=== PATIENT | female | born 1990 | race Asian ===

== ENCOUNTER 2017-06-07 07:04 | Inpatient (IN) | payer BC ==
[2017-06-07] MEDS ORDERED: Sodium Chloride 0.9% 10 ML Syringe FLUSH PRN (08:28)
[2017-06-07] MEDS ORDERED: Lidocaine 1% 50 ML MDV INJECT ONE (08:28)
[2017-06-07] MEDS ORDERED: Oxytocin/Lactated Ringers 10 UNIT/1,000 ML BAG IV SCH ×2 (08:30→11:15)
--- NOTE | 2017-06-07 08:47 | PCM.LDHP ---
<Ray Muñoz - Last Filed: 06/07/17 09:54> L&D History of Present Illness - General Date of Service: 06/07/17 Admit Problem/Dx: Admission Diagnosis/Problem Admission Diagnosis/Problem Source of Information: Patient, Other History Limitations: Reports: No Limitations - History of Present Illness Introduction:: History of present illness: Patient is a 26-year-old 2 para 1001 female admitted for induction of labor. Her last menstrual period was unknown since she did not experience menses since her last . Her initial ultrasound on 11/17/16 placed her at 11-1/7 weeks with a second ultrasound on at 21-1 weeks supporting an NARAYAN is 06/07/2017. Her previous resulted in a normal spontaneous vaginal delivery at 38-6 weeks on 03/28/16 of a 7 lbs 12 oz female named Irma Wilson after 9 hours of labor. She did have hypertension at the end of her previous . course was relatively unremarkable. She plans to breastfeed. She declined genetic testing. Patient declined influenza and TDAP vaccines. Her group B strep screen was positive. course: First visit occurred on 11/17/16 at 11-1/7 weeks. Has had an unremarkable course with normal fundal height growth. Pre- weight was 138 lbs, and current weight is 159 lbs, a gain of 21 lbs. Blood pressure measurements have remained borderline. Laboratory testing in consisted of a blood type which was B+ with a negative antibody screen. Initial labs showed a hemoglobin of 13.1 and platelets of 285,000. She is rubella immune. RPR is nonreactive. Hepatitis B surface antigen and HIV assays were both negative. Third trimester labs showed a HGB of 9.3 Platelet count was 231,000 and GTT was abnormal at 144. Hemoglobin A1C performed later was at 5.20. A recheck CBC at 26 weeks showed a HGB of 11.6 and platelets of 152,000. Her group B strep screen in the third trimester is positive. Allergies: 1. Animal dander-cats 2. Bemzk-mrzobyj-aaesd Medications: 1. vitamins 1 tablet daily 2. Ferrous sulfate 325 mg twice a day Past medical history: 1. Allergies-takes Claritin 2. Gallstones Past surgical history: 1. Tonsillectomy in childhood 2. Needles teeth removal 2011 Family History: Mother alive with HTN. Father alive. One brother and three sisters alive and well. MGM and MGF health status unknown as patient's mother is adopted. PGM alive and well; PGF from a plane crash. Social history: Patient is . is Corona Steinberg. Lives in [place], [place]. She has some college. No tobacco, alcohol, or illicit drug usage. Review of systems: Patient has no concerns. Normal changes reported. Skin: no rashes or lesions Respiratory: no shortness of breath Cardiovasular: denies chest pain Breasts: no masses noted GI: normal bowel activity : no dysuria Musculoskeletal: denies muscle pain or tenderness Neurologic: normal Physical exam: Well-developed, well-nourished, and in no acute distress Skin: warm and dry with no lesions or rashes noted HEENT: no lymphadenopathy, no thyromegaly Cardiovascular: regular rate and rhythm, normal S1 and S2, no murmurs Respiratory: clear breath sounds in all lung hernandez Breast: deferred Abdomen: protuberant with , baby in vertex position. Cervical exam: 3+, 80% effaced, mid-position Extremities: no distal edema noted - Related Data Allergies/Adverse Reactions: Allergies Allergy/AdvReac Type Severity Reaction Status Date / Time breezy Allergy Hives Verified 03/28/16 11:51 Home Medications: Home Meds Ferrous Sulfate [Iron] 325 mg PO DAILY 03/28/16 [History] Pnv No.122/Iron/Folic Acid [ Multi Tablet] 1 each PO DAILY 03/28/16 [ History] Past Medical History - Past Health History Medical/Surgical History: Denies Medical/Surgical History [facility] History: Reports: - Past Surgical History HEENT Surgical History: Reports: Adenoidectomy, Oral Surgery, Tonsillectomy Social & Family History - Tobacco Use Smoking Status *Q: Never Smoker Second Hand Smoke Exposure: No - Recreational Drug Use Recreational Drug Use: No H&P Review of Systems - Review of Systems: Review Of Systems: See Below L&D Exam - Exam Exam: See Below - Vital Signs Vital Signs: Last Vital Signs Temp 98.2 F 06/07/17 08:19 Pulse 95 06/07/17 08:19 Resp 15 06/07/17 08:19 BP 121/73 06/07/17 08:19 Pulse Ox 100 08/30/17 08:19 Weight: 72.393 kg Problem List Initiated/Reviewed/Updated: Yes Assessment/Plan Comment:: Assessment: 1. 26-year-old at at 40-0 weeks gestational age by ultrasound admitted for induction of labor. 2. Patient is group B strep positive. Plan: 1. Artificial rupture of membranes performed. 2. Expectant management-will monitor contractions and will augment with oxytocin based on frequency and strength. 3. Ampicillin for group B strep. 4. Patient plans to breastfeed. <Kuldeep Momin - Last Filed: 06/08/17 09:00> L&D History of Present Illness - General Admit Problem/Dx: Admission Diagnosis/Problem Admission Diagnosis/Problem L&D Exam - Vital Signs Vital Signs: Last Vital Signs Temp 36.4 C 06/08/17 03:27 Pulse 58 L 06/08/17 03:27 Resp 14 06/08/17 03:27 BP 114/82 06/08/17 03:27 Pulse Ox 97 06/08/17 03:27 - Patient Data Lab Results Last 24 hrs: Laboratory Results - last 24 hr 06/07/17 06/08/17 Range/Units 08:45 05:45 WBC 10.14 H 14.96 H (3.98-10.04) K/mm3 RBC 4.00 3.68 L (3.98-5.22) M/mm3 Hgb 12.1 11.2 (11.2-15.7) gm/L Hct 34.5 32.0 L (34.1-44.9) % MCV 86.3 87.0 (79.4-94.8) fl MCH 30.3 30.4 (25.6-32.2) pg MCHC 35.1 35.0 (32.2-35.5) g/dl RDW Std Deviation 51.3 H 50.7 H (36.4-46.3) fL Plt Count 149 L 127 L (182-369) K/mm3 MPV 10.4 10.1 (9.4-12.3) fl Result Diagrams: 06/08/17 05:45 Orders Last 24hrs: Active Orders 24 hr Category Date Time Status Activity as Tolerated [RC] PER UNIT ROUTINE Care 06/07/17 18:53 Active Notify Provider [RC] ASDIRECTED Care 06/07/17 13:51 Inactive Oxygen Therapy [RC] ASDIRECTED Care 06/07/17 13:51 Inactive Pulse Oximetry [RC] ASDIRECTED Care 06/07/17 13:51 Inactive Vital Signs [RC] 04,12,20 Care 06/07/17 18:53 Active Vital Signs [RC] PER UNIT ROUTINE Care 06/07/17 08:28 Inactive Regular Diet [DIET] Diet 06/07/17 Dinner Active Acetaminophen [Tylenol] Med 06/07/17 18:53 Active 650 mg PO Q4H PRN Benzocaine/Menthol [Dermoplast Pain Relief [place]] Med 06/07/17 18:53 Active See Dose Instructions TOP ASDIRECTED PRN Docusate Sodium [Colace] Med 06/07/17 18:53 Active 100 mg PO BID PRN Ibuprofen [Motrin] Med 06/07/17 18:53 Active 600 mg PO Q4H PRN Lanolin [Lansinoh HPA] Med 06/07/17 18:53 Active See Dose Instructions TOP ASDIRECTED PRN Witch Rosa [Tucks] Med 06/07/17 18:53 Active 1 pad TOP ASDIRECTED PRN Assess Lochia [WOMSER] Per Unit Routine Oth 06/07/17 18:53 Ordered Assess Uterine Involution [WOMSER] Per Unit Routine Oth 06/07/17 18:53 Ordered Breast Pump [WOMSER] Per Unit Routine Oth 06/07/17 18:53 Ordered Heat Therapy [OM.PC] PRN Oth 06/07/17 18:53 Ordered Heat Therapy [OM.PC] PRN Oth 06/08/17 18:53 Ordered Ice Therapy [OM.PC] Per Unit Routine Oth 06/07/17 18:53 Ordered Medication Administration Instruction [OM.PC] Routine Oth 06/07/17 18:53 Ordered Perineal Care [OM.PC] Per Unit Routine Oth 06/07/17 18:53 Ordered Sitz Bath [OM.PC] Per Unit Routine Oth 06/07/17 18:53 Ordered Resuscitation Status Routine Resus Stat 06/07/17 08:28 Ordered Medication Orders Acetaminophen (Tylenol) 650 mg PO Q4H PRN PRN Reason: mild pain or fever Benzocaine/Menthol (Dermoplast Pain Relief [place]) 0 gm TOP ASDIRECTED PRN PRN Reason: Perineal Comfort Measure Last Admin: 06/07/17 21:08 Dose: 1 canister Docusate Sodium (Colace) 100 mg PO BID PRN PRN Reason: Constipation Last Admin: 06/07/17 21:08 Dose: 100 mg Emollient Ointment (Lansinoh Hpa) 0 gm TOP ASDIRECTED PRN PRN Reason: Sore Nipples Ibuprofen (Motrin) 600 mg PO Q4H PRN PRN Reason: Mild pain or fever Last Admin: 06/08/17 07:31 Dose: 600 mg Admin: 06/08/17 03:31 Dose: 600 mg Admin: 06/07/17 21:07 Dose: 600 mg Witch Rosa (Tucks) 1 pad TOP ASDIRECTED PRN PRN Reason: Hemorrhoid pain Last Admin: 06/07/17 21:08 Dose: 1 jar
[2017-06-07] MEDS ORDERED: Ampicillin 2 GM in Sodium Chloride 0.9% 100 ML IV ONE (09:00)
[2017-06-07] MEDS: Lactated Ringers 1,000 ML IV SCH ×2 (09:12→14:24)
[2017-06-07] MEDS: Ampicillin 1 GM in Sodium Chloride 0.9% 100 ML IV SCH ×2 (13:37→17:27)
[2017-06-07] MEDS ORDERED: fentaNYL 100 MCG/2 ML SDV EPIDUR PRN (13:52)
[2017-06-07] MEDS ORDERED: Ondansetron 4 MG/2 ML SDV IVPUSH PRN (13:52)
[2017-06-07] MEDS ORDERED: ePHEDrine 50 MG/ML SDV IVPUSH PRN (13:52)
--- NOTE | 2017-06-07 13:54 | PCM.PREANE ---
Preanesthetic Assessment - Anesthesia/Transfusion/Family Hx Anesthesia History: Prior Anesthesia Without Reaction Family History of Anesthesia Reaction: No Transfusion History: No Prior Transfusion(s) Intubation History: Unknown - Review of Systems General: No Symptoms Pulmonary: No Symptoms Cardiovascular: No Symptoms Gastrointestinal: No Symptoms (GERD) Neurological: No Symptoms Other: Reports: None - Physical Assessment NPO Status Date: 06/07/17 NPO Status Time: 13:30 Pulse: 95 O2 Sat by Pulse Oximetry: 100 Respiratory Rate: 15 Blood Pressure: 121/73 Temperature: 36.8 C Vital Signs: Last Vital Signs Temp 36.8 C 06/07/17 08:19 Pulse 95 06/07/17 08:19 Resp 15 06/07/17 08:19 BP 121/73 06/07/17 08:19 Pulse Ox 100 06/07/17 08:19 Height: 1.63 m Weight: 72.393 kg ASA Class: 2 Mental Status: Alert & Oriented x3 Airway Class: Mallampati = 2 Dentition: Reports: Normal Dentition (upper and lower permanent retainers noted. ), Caries Thyro-Mental Finger Breadths: 3 Mouth Opening Finger Breadths: 3 ROM/Head Extension: Full Lungs: Clear to Auscultation, Normal Respiratory Effort Cardiovascular: Regular Rate, Regular Rhythm - Lab Values: Laboratory Last Values WBC 10.14 K/mm3 (3.98-10.04) H 06/07/17 08:45 RBC 4.00 M/mm3 (3.98-5.22) 06/07/17 08:45 Hgb 12.1 gm/L (11.2-15.7) 06/07/17 08:45 Hct 34.5 % (34.1-44.9) 06/07/17 08:45 MCV 86.3 fl (79.4-94.8) 06/07/17 08:45 MCH 30.3 pg (25.6-32.2) 06/07/17 08:45 MCHC 35.1 g/dl (32.2-35.5) 06/07/17 08:45 RDW Std Deviation 51.3 fL (36.4-46.3) H 06/07/17 08:45 Plt Count 149 K/mm3 (182-369) L 06/07/17 08:45 MPV 10.4 fl (9.4-12.3) 06/07/17 08:45 Above labs reviewed and noted. - Allergies Allergies/Adverse Reactions: Allergies Allergy/AdvReac Type Severity Reaction Status Date / Time breezy Allergy Hives Verified 03/28/16 11:51 - Anesthesia Plan Pre-Op Medication Ordered: None - Acknowledgements Anesthesia Type Planned: Epidural Pt an Appropriate Candidate for the Planned Anesthesia: Yes Alternatives and Risks of Anesthesia Discussed w Pt/Guardian: Yes Pt/Guardian Understands and Agrees with Anesthesia Plan: Yes PreAnesthesia Questionnaire - Past Health History Medical/Surgical History: Denies Medical/Surgical History [employer] History: Reports: Hematologic History: Reports: Anemia - Past Surgical History HEENT Surgical History: Reports: Adenoidectomy, Oral Surgery, Tonsillectomy - SUBSTANCE USE Smoking Status *Q: Never Smoker Second Hand Smoke Exposure: No Recreational Drug Use History: No - HOME MEDS Home Medications: Home Meds Ferrous Sulfate [Iron] 325 mg PO DAILY 03/28/16 [History] Pnv No.122/Iron/Folic Acid [ Multi Tablet] 1 each PO DAILY 03/28/16 [ History] - CURRENT (IN HOUSE) MEDS Current Meds: Current Medications Ampicillin Sodium 1 gm/ Sodium (Chloride) 100 mls @ 200 mls/hr IV Q4H DAY Last Admin: 06/07/17 13:37 Dose: 200 mls/hr Lactated Ringer's (Ringers, Lactated) 1,000 mls @ 100 mls/hr IV ASDIRECTED DAY Last Admin: 06/07/17 09:12 Dose: 100 mls/hr Oxytocin/Lactated Ringer's (Pitocin In Lr 10 Units/1,000 Ml) 10 unit in 1,000 mls @ 500 mls/hr IV .CONTINUOUS DAY Oxytocin/Lactated Ringer's (Pitocin In Lr 10 Units/1,000 Ml) 10 unit in 1,000 mls @ 12 mls/hr IV TITRATE DAY; 2 MUNITS/MIN PRN Reason: Protocol Sodium Chloride (Saline Flush) 10 ml FLUSH ASDIRECTED PRN PRN Reason: Keep Vein Open Discontinued Medications Ampicillin Sodium 2 gm/ Sodium (Chloride) 100 mls @ 200 mls/hr IV ONETIME ONE Stop: 06/07/17 09:29 Last Admin: 06/07/17 09:12 Dose: 200 mls/hr Lidocaine HCl (Xylocaine 1%) 50 ml INJECT ONETIME ONE Stop: 06/07/17 08:29
[2017-06-07] MEDS: Bupivacaine/fentaNYL/NS 100 ML Bag EPIDUR SCH ×2 (14:35→15:42)
[2017-06-07] MEDS ORDERED: Lidocaine 1% 50 ML MDV ONE (17:55)
--- NOTE | 2017-06-07 18:31 | PCM.SN ---
- Free Text/Narrative Note: Delivery note: Tosha is a 26-year-old 2 now para 2002 [place] female who was admitted on the a.m. of 06/07/2017 for elective induction of labor. She is noted to be having contractions every 3-5 minutes at the time of admission. She is noted to be 3 cm dilated and approximately 80% effaced at the time of admission and had artificial rupture of membranes induction. With rupture membranes patient progressed into labor and proceeded to complete cervical dilation by late afternoon. She then delivered a viable, beltre, male infant weighing 4180 g (9 pounds 3.4 ounces), measuring 21.5 inches and having Apgars of 6 and 9. Baby delivered in an occiput anterior position. There was a nuchal cord 1 which was reduced over the baby's head and there was also true knot 1 in the umbilical cord. Patient had a second-degree perineal laceration which was repaired with 3-0 Monocryl suture in a routine fashion after infiltration with lidocaine 1%-10 mL. Cord blood was obtained after delivery of the baby. The baby was placed on the mom's abdomen after the cord was clamped 2 and cut by the father. The placenta delivered in a Hernandez presentation, appeared intact and complete. Pitocin was administered after delivery of the baby to facilitate increase in uterine tone and decrease bleeding. Estimated blood loss was 100 mL. The patient plans to breast-feed. Condition: Good.
[2017-06-07] MEDS ORDERED: Benzocaine/Menthol 20%-0.5% Spray 56 GM Canister TOP PRN (18:53)
[2017-06-07] MEDS ORDERED: Acetaminophen 325 MG Tab PO PRN (18:53)
[2017-06-07] MEDS ORDERED: Witch Hazel Medicated Pads 100/Jar TOP PRN (18:53)
[2017-06-07] MEDS ORDERED: Bupivacaine 0.25% 10 ML SDV ONE (18:53)
[2017-06-07] MEDS ORDERED: Lanolin 100% Cream 7 GM Tube TOP PRN (18:53)
[2017-06-07] MEDS ORDERED: Docusate Sodium 100 MG Cap PO PRN (18:53)
[2017-06-07] MEDS: Ibuprofen 600 MG Tab PO PRN (21:07)
[2017-06-08] MEDS: Ibuprofen 600 MG Tab PO PRN ×4 (03:31→17:11)
--- NOTE | 2017-06-08 09:19 | PCM48HPAN ---
Post Anesthesia Note - EVALUATION WITHIN 48HRS OF ANESTHETIC Vital Signs in Normal Range: Yes Patient Participated in Evaluation: Yes Respiratory Function Stable: Yes Airway Patent: Yes Cardiovascular Function Stable: Yes Hydration Status Stable: Yes Pain Control Satisfactory: Yes Nausea and Vomiting Control Satisfactory: Yes Mental Status Recovered: Yes - COMMENTS/OBSERVATIONS Free Text/Narrative:: Tosha is up and walking around. She is able to void with no problems. Denies back pain, numbness and/or tingling sensations. Epidural worked well for her labor.
[2017-06-08 12:11] VITALS: BP 118/87
--- NOTE | 2017-06-15 17:09 | PCM.DCSUM1 ---
Discharge Summary - Hospital Course Free Text/Narrative:: Tosha is a 26-year-old 2 now para 2002 [place] female who was admitted on the a.m. of 06/07/2017 for elective induction of labor. She is noted to be having contractions every 3-5 minutes at the time of admission. She is noted to be 3 cm dilated and approximately 80% effaced at the time of admission and had artificial rupture of membranes induction. With rupture membranes patient progressed into labor and proceeded to complete cervical dilation by late afternoon. She then delivered a viable, beltre, male weighing 4180 g (9 pounds 3.4 ounces), measuring 21.5 inches and having Apgars of 6 and 9. Baby delivered in an occiput anterior position. There was a nuchal cord 1 which was reduced over the baby's head and there was also true knot 1 in the umbilical cord. Patient had a second-degree perineal laceration which was repaired with 3-0 Monocryl suture in a routine fashion after infiltration with lidocaine 1%-10 mL. Cord blood was obtained after delivery of the baby. The baby was placed on the mom's abdomen after the cord was clamped 2 and cut by the father. The placenta delivered in a Hernandez presentation, appeared intact and complete. Pitocin was administered after delivery of the baby to facilitate increase in uterine tone and decrease bleeding. Estimated blood loss was 100 mL. The patient plans to breast-feed. patient was done well. She is not nursing. She is ambulating well, has minimal lochia and voiding without problems. She is desiring discharge home. Condition: Good. - Discharge Data Discharge Date: 06/09/17 Discharge Disposition: Home, Self-Care 01 Condition: Good - Patient Instructions Diet: Usual Diet as Tolerated Diet, Other: : extra calories/calcium Activity: No Strenuous Activities Activity, Other: Pelvic rest (no intercourse/tampons) until flow resolves. Showering/Bathing: May Shower Notify Provider of: Fever, Increased Pain, Swelling and Redness, Drainage, Nausea and/or Vomiting - Discharge Plan Home Medications: Home Meds Pnv No.122/Iron/Folic Acid [ Multi Tablet] 1 each PO DAILY 03/28/16 [ History] Acetaminophen [Tylenol] 650 mg PO Q4H PRN tablet 06/08/17 [Rx] Benzocaine/Menthol [Dermoplast Pain Relief [place]] 56 gm TOP ASDIRECTED PRN canister 06/08/17 [Rx] Docusate Sodium [Colace] 100 mg PO BID PRN cap 06/08/17 [Rx] Ibuprofen [IJD: Ibuprofen] 600 mg PO Q4H PRN tablet 06/08/17 [Rx] Lanolin [Lansinoh HPA] 7 gm TOP ASDIRECTED PRN tube 06/08/17 [Rx] Camden Lee [Tucks] 1 pad TOP ASDIRECTED PRN pad 06/08/17 [Rx] Patient Handouts: Vaginal Delivery, Care After, Challenges and Solutions Referrals: Kuldeep Momin MD [Primary Care Provider] - (Follow up visit in 6 weeks. Please call to make this appointment.) - Discharge Summary/Plan Comment DC Time >30 min.: No Discharge Summary/Plan Comment: Discharge instructions: 1. Discharge home 2. Regular, high fiber diet 3. Medications are discussed the patient in detail. They're printed and given to the patient. 4. Return to clinic-Dr. Momin-6 weeks-[facility]. Diagnosis: Term -delivered Condition: Good - Patient Data Vitals - Most Recent: Last Vital Signs Temp 36.7 C 06/08/17 12:08 Pulse 66 06/08/17 12:08 Resp 16 06/08/17 12:08 BP 118/87 06/08/17 12:08 Pulse Ox 98 06/08/17 12:08 Weight - Most Recent: 72.393 kg Med Orders - Current: Current Medications Discontinued Medications Acetaminophen (Tylenol) 650 mg PO Q4H PRN PRN Reason: mild pain or fever Last Admin: 06/08/17 09:56 Dose: 650 mg Benzocaine/Menthol (Dermoplast Pain Relief [place]) 0 gm TOP ASDIRECTED PRN PRN Reason: Perineal Comfort Measure Last Admin: 06/07/17 21:08 Dose: 1 canister Bupivacaine HCl (Sensorcaine-Mpf 0.25%) 10 ml .ROUTE .STK-MED ONE Stop: 06/07/17 18:54 Docusate Sodium (Colace) 100 mg PO BID PRN PRN Reason: Constipation Last Admin: 06/07/17 21:08 Dose: 100 mg Emollient Ointment (Lansinoh Hpa) 0 gm TOP ASDIRECTED PRN PRN Reason: Sore Nipples Ephedrine Sulfate (Ephedrine Sulfate) 5 mg IVPUSH ASDIRECTED PRN PRN Reason: Hypotension Fentanyl (Sublimaze) 100 mcg EPIDUR Q3H PRN PRN Reason: Pain Last Admin: 06/07/17 14:34 Dose: 100 mcg Fentanyl/Bupivacaine HCl (Fentanyl/Bupivacaine/Ns 2 Mcg-0.125% 100 Ml) 100 ml EPIDUR ASDIRECTED DAY Last Admin: 06/07/17 15:42 Dose: 100 ml Ampicillin Sodium 2 gm/ Sodium (Chloride) 100 mls @ 200 mls/hr IV ONETIME ONE Stop: 06/07/17 09:29 Last Admin: 06/07/17 09:12 Dose: 200 mls/hr Ampicillin Sodium 1 gm/ Sodium (Chloride) 100 mls @ 200 mls/hr IV Q4H DAY Last Admin: 06/07/17 17:27 Dose: 200 mls/hr Lactated Ringer's (Ringers, Lactated) 1,000 mls @ 100 mls/hr IV ASDIRECTED DAY Last Admin: 06/07/17 14:24 Dose: 100 mls/hr Oxytocin/Lactated Ringer's (Pitocin In Lr 10 Units/1,000 Ml) 10 unit in 1,000 mls @ 500 mls/hr IV .CONTINUOUS DAY Last Admin: 06/07/17 17:48 Dose: 500 mls/hr Oxytocin/Lactated Ringer's (Pitocin In Lr 10 Units/1,000 Ml) 10 unit in 1,000 mls @ 12 mls/hr IV TITRATE DAY; 2 MUNITS/MIN PRN Reason: Protocol Ibuprofen (Motrin) 600 mg PO Q4H PRN PRN Reason: Mild pain or fever Last Admin: 06/08/17 17:11 Dose: 600 mg Lidocaine HCl (Xylocaine 1%) 50 ml INJECT ONETIME ONE Stop: 06/07/17 08:29 Last Admin: 06/07/17 22:55 Dose: Not Given Lidocaine HCl (Xylocaine 1%) Confirm Administered Dose 50 ml .ROUTE .STK-MED ONE Stop: 06/07/17 17:56 Last Admin: 06/07/17 18:23 Dose: 50 ml Ondansetron HCl (Zofran) 4 mg IVPUSH ONETIME PRN PRN Reason: Nausea/Vomiting Sodium Chloride (Saline Flush) 10 ml FLUSH ASDIRECTED PRN PRN Reason: Keep Vein Open Camden Lee (Kemcks) 1 pad TOP ASDIRECTED PRN PRN Reason: Hemorrhoid pain Last Admin: 06/07/17 21:08 Dose: 1 jar *Q Meaningful Use (DIS) - VTE *Q VTE Criteria *Q: - Stroke *Q Stroke Criteria *Q: - AMI *Q AMI Criteria *Q:
== END 2017-06-08 18:30 | disposition home or self-care (01) | DRG 560 ==
LOC: JD.OB 07:04 → OBSVTOIN 17:48 → JD.OB 17:48
PROVIDERS: ADMIT Obstetrics & Gynecology; ATTEND Obstetrics & Gynecology
PROC: 10E0XZZ Delivery of Products of Conception, External Approach (ICD-10-PCS; principal; 2017-06-07)
PROC: 10907ZC Drainage of Amniotic Fluid, Therapeutic from Products of Conception, Via Natural or Artificial Opening (ICD-10-PCS; 2017-06-07)
PROC: 0KQM0ZZ Repair Perineum Muscle, Open Approach (ICD-10-PCS; 2017-06-07)
PROC: 00HU33Z Insertion of Infusion Device into Spinal Canal, Percutaneous Approach (ICD-10-PCS; 2017-06-07)
PROC: 3E0R3CZ (ICD-10-PCS; 2017-06-07)
DX: O99.824 Streptococcus B carrier state complicating childbirth (principal); O70.1 Second degree perineal laceration during delivery; O69.2XX0 Labor and delivery complicated by other cord entanglement, with compression, not applicable or unspecified; Z3A.40 40 weeks gestation of pregnancy; Z37.0 Single live birth
CPT/HCPCS: 36415; 85027; A9270-GY; J0290; J2590; J3010; J7030; J7120

== ENCOUNTER 2019-03-24 17:43 | Emergency (ER) | payer BC ==
[2019-03-24 17:50] VITALS: BP 158/112
[2019-03-24] MEDS ORDERED: Lidocaine 1% 10 ML MDV INJECT ONE (17:57)
--- NOTE | 2019-03-24 18:05 | EDM.PDOC ---
ED HPI GENERAL MEDICAL PROBLEM - General Chief Complaint: Laceration Stated Complaint: THUMB LAC Time Seen by Provider: 03/24/19 18:04 Source of Information: Reports: Patient, Provider, RN, RN Notes Reviewed History Limitations: Reports: No Limitations - History of Present Illness INITIAL COMMENTS - FREE TEXT/NARRATIVE: Tosha Steinberg is a 28 yo female who attempted to open a drawer waxer her kitchen and a rash bottle was stuck so she could not open it. She then grabbed a knife and attempt to push it down with this however in the process she caught her L thumb. She is unsure of her tetanus status but does report it was likely within the last 5 years. Denies any past medical history of and is not on any current medications. She reports some breezy allergy but no known drug allergies. Blade was smooth and not serrated. No fever or obvious signs of infection at this point. Wound is still oozing blood. She does not have a primary care provider. Left Hand Pain Score (Numeric/FACES): 6 - Related Data Allergies Allergy/AdvReac Type Severity Reaction Status Date / Time breezy Allergy Hives Verified 03/24/19 17:50 Home Meds: Home Meds Pnv No.122/Iron/Folic Acid [ Multi Tablet] 1 each PO DAILY 03/28/16 [ History] Acetaminophen [Tylenol] 650 mg PO Q4H PRN tablet 06/08/17 [Rx] Benzocaine/Menthol [Dermoplast Pain Relief [place]] 56 gm TOP ASDIRECTED PRN canister 06/08/17 [Rx] Docusate Sodium [Colace] 100 mg PO BID PRN cap 06/08/17 [Rx] Ibuprofen [IJD: Ibuprofen] 600 mg PO Q4H PRN tablet 06/08/17 [Rx] Lanolin [Lansinoh HPA] 7 gm TOP ASDIRECTED PRN tube 06/08/17 [Rx] Witch Rosa [Tucks] 1 pad TOP ASDIRECTED PRN pad 06/08/17 [Rx] Past Medical History - Past Health History Medical/Surgical History: Denies 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 ED EXAM, SKIN/RASH Exam: See Below Exam Limited By: No Limitations General Appearance: Alert, WD/WN, No Apparent Distress ED SKIN PROCEDURES - Laceration/Wound Repair Left Distal Digit - 1st (Thumb) Lac/Wound length In cm: 1.5 Appearance: Superficial Distal NVT: Neuro & Vascular Intact Anesthetic Type: Local Local Anesthesia - Lidocaine (Xylocaine): 1% Plain Local Anesthetic Volume: 2cc Skin Prep: Chlorhexidine (Hibiciens) Exploration/Debridement/Repair: Wound Explored, Explored to Base, No Foreign Material Found Closed with: Sutures Suture Size: 4-0 # of Sutures: 7 Suture Type: Prolene, Interrupted Sterile Dressing Applied: Nurse Tetanus Status Addressed: Yes Complications: No Course - Vital Signs Last Recorded V/S: Last Vital Signs Temp 97.6 F 03/24/19 17:49 Pulse 75 03/24/19 17:49 Resp 14 03/24/19 17:49 BP 158/112 H 03/24/19 17:49 Pulse Ox 100 03/24/19 17:49 - Orders/Labs/Meds Meds: Medications Discontinued Medications Generic Name Dose Route Start Last Admin Trade Name Adia PRN Reason Stop Dose Admin Lidocaine HCl 10 ml 03/24/19 17:57 03/24/19 18:05 Xylocaine 1% INJECT 03/24/19 17:58 10 ml ONETIME ONE Administration Ondansetron HCl 4 mg 03/24/19 18:23 Zofran Odt PO 03/24/19 18:24 ONETIME ONE Departure - Departure Time of Disposition: 18:56 Disposition: Home, Self-Care 01 Condition: Good Clinical Impression: Laceration - Discharge Information *PRESCRIPTION DRUG MONITORING PROGRAM REVIEWED*: No *COPY OF PRESCRIPTION DRUG MONITORING REPORT IN PATIENT JAY: No Instructions: Laceration Care, Adult, [id number], Stitches, [place], or Adhesive Wound Closure, [id number] Referrals: PCP,None [Primary Care Provider] - Forms: ED Department Discharge Additional Instructions: You were seen today for a 1.5cm laceration in your left thumb. 7 sutures were applied. You can take Tylenol or ibuprofen for pain. He should expect some numbness on the finger as he likely cut some nerve endings. She developed a fever or notice white pus-like discharge he should be seen again. You can come to the emergency room or be seen by primary care provider or walk-in clinic. These sutures should remain in place for a total of 10 days. He can return here or go to our clinic where they will be removed for free. Showering is okay however he should not soak it under water until sutures are removed. Try to keep the area dry. We discussed her tetanus status and you suspect it has been less than 5 years since he last received a vaccination. This was likely addressed when you delivered her child as we discussed. As long as you are within 10 years he will be good. If you find it has been longer than this he has 72 hours from the time of injury to receive tetanus vaccination.
[2019-03-24] MEDS ORDERED: Ondansetron 4 MG Tab.DIS PO ONE (18:23)
== END 2019-03-24 19:01 | disposition home or self-care (01) ==
LOC: JD.ED 17:43
DX: S61.012A Laceration without foreign body of left thumb without damage to nail, initial encounter (principal); Z79.899 Other long term (current) drug therapy; Z91.018 Allergy to other foods; W26.0XXA Contact with knife, initial encounter
CPT/HCPCS: 12001; 99282; A9270; J2001

== ENCOUNTER 2024-01-09 19:56 | Emergency (ER) | payer BC ==
[2024-01-09] MEDS: Acetaminophen 325 MG Tab PO ONE (20:19)
[2024-01-09 22:23] VITALS: BP 133/95; PULSE 88
== END 2024-01-09 22:26 | disposition home or self-care (01) ==
LOC: JD.ED 19:56
DX: S93.602A Unspecified sprain of left foot, initial encounter (principal); Z79.899 Other long term (current) drug therapy; Z91.018 Allergy to other foods; X50.0XXA Overexertion from strenuous movement or load, initial encounter
CPT/HCPCS: 29515; 73610-26-LT; 73610-LT; 73630-26-LT; 73630-LT; 99283; 99283-25; A9270-GY